=== PATIENT | male | born 1940 | race Hispanic/Latino ===

== ENCOUNTER 2017-09-14 10:55 | Emergency (ER) | payer MEDICARE ==
[2017-09-14] MEDS ORDERED: XYLOCAINE 1% 20 mL ONE (11:13)
[2017-09-14] MEDS ORDERED: ZOFRAN ONE (11:16)
[2017-09-14] MEDS ORDERED: DILAUDID ONE (11:16)
[2017-09-14] MEDS ORDERED: BENADRYL ONE (11:16)
[2017-09-14] MEDS ORDERED: BOOSTRIX IM ONE (11:59)
--- NOTE | 2017-09-14 12:01 | Emergency Department Report ---
ED General Adult HPI - General Chief complaint: Skin/Abscess/Foreign Body Stated complaint: swollen penis Source: patient Mode of arrival: Ambulatory Limitations: No Limitations - History of Present Illness Initial comments: Patient admits that he placed a ring on his penis more than 2 hours prior to arrival. He couldn't remove it. Subsequently the penis began to swell and ultimately turn very dusky in color. The patient states that he tried to " drain the veins"with a needle. This only caused bleeding and did not reduce the swelling. The patient only complains of moderate pain at his time of arrival. -: hour(s) Location: genitals Radiation: non-radiation Improves with: none Worsens with: none Associated Symptoms: denies other symptoms Treatments Prior to Arrival: other - Related Data Allergies Allergy/AdvReac Type Severity Reaction Status Date / Time No Known Allergies Allergy Unverified 04/09/17 13:46 ED Review of Systems ROS: Stated complaint: GI BLEED Other details as noted in HPI Constitutional: denies: chills, fever Eyes: denies: eye pain, eye discharge, vision change ENT: denies: ear pain, throat pain Respiratory: denies: cough, shortness of breath, wheezing Cardiovascular: denies: chest pain, palpitations Endocrine: no symptoms reported Gastrointestinal: denies: abdominal pain, nausea, diarrhea Genitourinary: as per HPI Musculoskeletal: denies: back pain, joint swelling, arthralgia Skin: denies: rash, lesions Neurological: denies: headache, weakness, paresthesias Psychiatric: denies: anxiety, depression Hematological/Lymphatic: denies: easy bleeding, easy bruising ED Past Medical Hx - Past Medical History Previous Medical History?: Yes Additional medical history: 6 stents, reflux - Social History Smoking Status: Never Smoker Substance Use Type: None ED Physical Exam - General Limitations: No Limitations General appearance: alert, in no apparent distress - Head Head exam: Present: atraumatic, normocephalic - Eye Eye exam: Present: normal appearance - ENT ENT exam: Present: mucous membranes moist - Neck Neck exam: Present: normal inspection - Respiratory Respiratory exam: Present: normal lung sounds bilaterally. Absent: respiratory distress - Cardiovascular Cardiovascular Exam: Present: regular rate, normal rhythm. Absent: systolic murmur, diastolic murmur, rubs, gallop - GI/Abdominal GI/Abdominal exam: Present: soft, normal bowel sounds. Absent: distended, tenderness, guarding, rebound, rigid - Rectal Rectal exam: Present: deferred - exam: Present: other (the penis is 2-3 times its normal size but it is not erect. It is somewhat engorged. It is quite cyanotic but still warm. It is not black. There is a constricting very large ring at the base of the penis.) - Extremities Exam Extremities exam: Present: normal inspection - Back Exam Back exam: Present: normal inspection - Neurological Exam Neurological exam: Present: alert, oriented X3, CN II-XII intact. Absent: motor sensory deficit - Psychiatric Psychiatric exam: Present: normal affect, normal mood - Skin Skin exam: Present: warm, dry, intact, normal color. Absent: rash ED Course Vital Signs 09/14/17 09/14/17 10:56 11:19 Temperature 98.5 F Pulse Rate 108 H Respiratory 26 H 24 Rate Blood Pressure 172/86 O2 Sat by Pulse 90 96 Oximetry - Reevaluation(s) Reevaluation #1: Approximately 4 mL of lidocaine was injected into the base of the penis proximal to the ring. A ring cutter was then inserted. The ring cutter made essentially no progress in abrading the surface of the metal. This was deemed to be futile. The patient was given analgesia, Zosyn, a tetanus toxoid. The [place] transfer center was immediately called. I requested trauma but at the call was diverted to urology. Urology did not call back. Therefore I spoke to the [place] transfer center myself. They were kind enough to put me in touch with the trauma physician [employer] consultant, Dr. Yost. She was very kind to accept this patient for transfer to the [place] ER and consideration of the time dependency of his injury. Furthermore, with the same consideration [facility] transport was called. 09/14/17 12:01 09/14/17 12:08 I called the maintenance department. They had a shekhar which would be too large under the circumstances. I looked at other equipment. I determined that none of it had any reasonable likely fluid of success and a high probability of substantial injury to the patient. As such, since we do not have the necessary equipment for ring removal the patient is transferred to [place]. Of note is that the penis is extremely dusky if not already nonviable on the patient's arrival. He states it's been this way for hours. Critical care attestation.: If time is entered above; I have spent that time in minutes in the direct care of this critically ill patient, excluding procedure time. ED Disposition Clinical Impression: Ischemia Foreign body of penis Qualifiers: Encounter type: initial encounter Qualified Code(s): T19.4XXA - Foreign body in penis, initial encounter Disposition: [id number]/TX-[id number] ANOTHER TYPE HLTHCARE Is pt being admited?: No Does the pt Need Aspirin: No Condition: Stable Referrals: PRIMARY CARE, [Primary Care Provider] - 3-5 Days Time of Disposition: 12:11
[2017-09-14] MEDS ORDERED: DILAUDID IV ONE (12:14)
[2017-09-14] MEDS ORDERED: BENADRYL IV ONE (12:14)
[2017-09-14] MEDS ORDERED: NACL 0.45% 1000 ML 1,000 ML IV ONE ×2 (12:22→19:09)
[2017-09-14] MEDS ORDERED: ZOSYN/NS 4.5GM/100ML 4.5 GM/100 ML VIAL IV ONE (12:30)
[2017-09-14 12:36] VITALS: BP 175/108
[2017-09-14] MEDS ORDERED: ZOFRAN IV ONE (12:47)
[2017-09-14] MEDS ORDERED: NACL 0.9% 1000 ML 1,000 ML IV ONE (16:09)
== END 2017-09-14 13:00 | disposition other institution (70) ==
LOC: ED 10:55
DX: T19.4XXA Foreign body in penis, initial encounter (principal); I99.8 Other disorder of circulatory system; X58.XXXA Exposure to other specified factors, initial encounter; Y93.89 Activity, other specified; Y99.8 Other external cause status; Y92.89 Other specified places as the place of occurrence of the external cause
CPT/HCPCS: 90471; 90715; 96365; 96375; 99284; J1170; J1200; J2405; J2543; J7030

== ENCOUNTER 2017-09-21 08:53 | Emergency (ER) | payer MEDICARE ==
[2017-09-21 09:23] VITALS: BP 156/75
== END 2017-09-21 09:30 | disposition left against medical advice (07) ==
LOC: ED 08:53
DX: Z53.21 Procedure and treatment not carried out due to patient leaving prior to being seen by health care provider (principal)

== ENCOUNTER 2017-09-22 05:44 | Emergency (ER) | payer MEDICARE ==
[2017-09-22 06:03] VITALS: BP 174/86
== END 2017-09-22 05:45 | disposition left against medical advice (07) ==
LOC: ED 05:44
DX: Z53.21 Procedure and treatment not carried out due to patient leaving prior to being seen by health care provider (principal)